=== PATIENT | female | born 1985 | race Caucasian/White ===

== ENCOUNTER 2018-12-17 20:10 | Emergency (ER) | payer OTHER ==
[2018-12-17] MEDS ORDERED: ONDANSETRON 4 MG/2 ML VIAL ONE (21:09)
[2018-12-17] MEDS ORDERED: MORPHINE 4 MG/ML SYR ONE (21:09)
[2018-12-17] MEDS ORDERED: NA CHLORIDE 0.9% 1,000 ML ONE (21:10)
[2018-12-17 21:38] LABS: Absolute Lymphocytes (CBC) 2.1 K/uL (0.7-4.9); Absolute Monocytes 0.9 K/uL (0.1-1.3); Absolute Neutrophil 8.4 K/uL (1.8-8.0); Basophils % 0.5 % (0-1.3); Eosinophils % 0.8 % (0-4.4); Lymphocytes % 18.3 % (15.3-44.8); MPV 9.1 fL (7.6-11.3); Monocytes % 7.7 % (3.3-12.3); RBC Red Blood Cell Count 4.53 M/uL (3.86-4.86)
[2018-12-17 21:52] LABS: ALT/SGPT 35 U/L (12-78); AST/SGOT 23 U/L (15-37); Albumin 3.9 g/dL (3.4-5.0); Alkaline Phosphatase 68 U/L (45-117); BUN Blood Urea Nitrogen 11 mg/dL (7-18); Bicarbonate 27 mmol/L (21-32); Bilirubin Direct < 0.1 mg/dL (0-0.2); Bilirubin Total 0.4 mg/dL (0.2-1.0); Glucose Level 95 mg/dL (74-106); Lipase 104 U/L (73-393); Potassium 3.9 mmol/L (3.5-5.1); Protein, Total 7.3 g/dL (6.4-8.2); Sodium Level 140 mmol/L (136-145)
[2018-12-17] MEDS ORDERED: LIDOCAINE VISCOUS 2% SOLN 15 ML UDC ONE (22:38)
[2018-12-17] MEDS ORDERED: DICYCLOMINE HCL 10 MG CAP ONE (22:38)
[2018-12-17] MEDS ORDERED: MAGNE/ALUM HYDROXD 30 ML UCUP ONE (22:38)
--- NOTE | 2018-12-17 23:20 | EDPHYS ---
Physician Documentation [facility] Name: Paulina Fonseca Age: 33 yrs Sex: Female : 1985 Arrival Date: 12/17/2018 Time: 20:14 Bed 13 Private MD: ED Physician Hari Cruz HPI: 12/17 20:55 This 33 yrs old Female presents to ER via Ambulatory with complaints of cp Abdominal Pain. 20:55 The patient presents with abdominal pain in the epigastric area, in the right upper cp quadrant. 20:55 Onset: The symptoms/episode began/occurred suddenly, today, at 16:00. The symptoms cp radiate to right back. Associated signs and symptoms: Pertinent positives: nausea, Pertinent negatives: chest pain, diarrhea, fever, vomiting. The symptoms are described as constant. Modifying factors: the symptoms are aggravated by pressure. Severity of pain: in the emergency department the pain is unchanged despite home interventions. Historical: - Allergies: 20:23 PENICILLINS; la1 - Home Meds: 20:23 Wellbutrin Oral [Active]; la1 - PMHx: 20:23 Hypertension; la1 - PSHx: 20:23 None; la1 - Immunization history:: Adult Immunizations up to date. - Social history:: Smoking status: Patient/guardian denies using tobacco. - Ebola Screening: : No symptoms or risks identified at this time. ROS: 21:00 Constitutional: Negative for body aches, chills, fever, poor PO intake. cp 21:00 Eyes: Negative for injury, pain, redness, and discharge. cp 21:00 ENT: Negative for drainage from ear(s), ear pain, sore throat, difficulty swallowing, difficulty handling secretions. 21:00 Cardiovascular: Negative for chest pain, edema, palpitations. 21:00 Respiratory: Negative for cough, shortness of breath, wheezing. 21:00 Abdomen/GI: Positive for abdominal pain, nausea, Negative for vomiting, diarrhea, constipation, anorexia, black/tarry stool, rectal bleeding. 21:00 Back: Positive for radiated pain, of the mid back area, Negative for injury or acute deformity, decreased range of motion. 21:00 : Negative for urinary symptoms. 21:00 Skin: Negative for cellulitis, rash. 21:00 Neuro: Negative for altered mental status, dizziness, headache, weakness. 21:00 All other systems are negative. Exam: 21:05 Constitutional: The patient appears in no acute distress, alert, awake, cp non-diaphoretic, non-toxic, well developed, well nourished, obese, uncomfortable. 21:05 Head/Face: Normocephalic, atraumatic. cp 21:05 Eyes: Periorbital structures: appear normal, Conjunctiva: normal, no exudate, no injection, Sclera: no appreciated abnormality, Lids and lashes: appear normal, bilaterally. 21:05 ENT: External ear(s): are unremarkable, Nose: is normal, Mouth: Lips: moist, Oral mucosa: pink and intact, moist, Posterior pharynx: is normal, airway is patent, no erythema, no exudate. 21:05 Neck: ROM/movement: is normal, is supple, without pain, no range of motions limitations, no nuchal rigidity. 21:05 Chest/axilla: Inspection: normal, Palpation: is normal, no crepitus, no tenderness. 21:05 Cardiovascular: Rate: tachycardic, Rhythm: regular. 21:05 Respiratory: the patient does not display signs of respiratory distress, Respirations: normal, no use of accessory muscles, no retractions, no splinting, no tachypnea, labored breathing, is not present, Breath sounds: are clear throughout, no decreased breath sounds, no stridor, no wheezing. 21:05 Abdomen/GI: Inspection: obese Bowel sounds: active, all quadrants, Palpation: soft, in all quadrants, moderate abdominal tenderness, in the epigastric area and right upper quadrant, rebound tenderness, is not appreciated, voluntary guarding, is elicited in the epigastric area and right upper quadrant. 21:05 Back: pain, that is moderate, of the mid back area, ROM is normal. 21:05 Skin: cellulitis, is not appreciated, no rash present. Vital Signs: 20:24 Pulse 119; Resp 16; Temp 97.3; Pulse Ox 98% on R/A; Weight 136.08 kg; Height 5 ft. 5 la1 in. (165.10 cm); Pain 8/10; 20:26 BP 140 / 97; la1 21:37 BP 95 / 83; Pulse 100; Resp 18; Pulse Ox 99% on R/A; ea 22:56 BP 107 / 78; Pulse 79; Resp 18; Pulse Ox 100% on R/A; ea 23:12 BP 107 / 78; Pulse 87; Resp 18; Pulse Ox 99% on R/A; ea 20:24 Body Mass Index 49.92 (136.08 kg, 165.10 cm) la1 MDM: 20:41 Patient medically screened. cp 22:40 Data reviewed: vital signs, nurses notes, lab test result(s), radiologic studies, cp ultrasound. Response to treatment: the patient's symptoms have markedly improved after treatment. 12/17 20:52 Order name: Basic Metabolic Panel; Complete Time: 22:20 12/17 20:52 Order name: CBC with Diff; Complete Time: 22:20 12/17 23:04 Interpretation: Normal except: WBC 11.5; NEUT A 8.4. 12/17 20:52 Order name: Creatinine for Radiology; Complete Time: 22:20 12/17 20:52 Order name: Hepatic Function; Complete Time: 22:20 12/17 23:04 Interpretation: Reviewed. 12/17 20:52 Order name: Lipase; Complete Time: 22:20 12/17 21:39 Order name: Urine Dipstick--Ancillary (enter results) [facility] 12/17 20:52 Order name: IV Saline Lock; Complete Time: 21:40 12/17 20:52 Order name: US Abdomen Limited: RUQ/epigastric area 12/17 21:39 Order name: Urine --Ancillary (enter results) [facility] 12/17 20:52 Order name: Labs collected and sent; Complete Time: 21:40 12/17 20:52 Order name: Urine Dipstick-Ancillary (obtain specimen); Complete Time: 21:39 12/17 20:52 Order name: Urine Test (obtain specimen); Complete Time: 21:39 12/17 22:23 Order name: PO challenge; Complete Time: 22:33 cp Administered Medications: 21:20 Drug: NS 0.9% 1000 ml Route: IV; Rate: 1 bolus; Site: right antecubital; ea 21:20 Drug: Zofran 4 mg Route: IVP; Site: right antecubital; ea 22:38 Follow up: Response: No adverse reaction; Pain is decreased ea 21:23 Drug: morphine 4 mg Route: IVP; Site: right antecubital; ea 22:00 Follow up: Response: No adverse reaction; Pain is decreased ea 22:38 Follow up: Response: No adverse reaction ea 22:33 Drug: Bentyl 20 mg Route: PO; ea 23:06 Follow up: Response: No adverse reaction ea 22:33 Drug: GI Cocktail without - (Maalox Suspension 30 ml, Lidocaine Liquid 2 % 15 ea ml) Route: PO; 23:06 Follow up: Response: No adverse reaction ea Disposition: 23:41 Co-signature as Attending Physician, Hari Cruz MD. pkl Disposition: 12/17/18 23:19 Discharged to Home. Impression: Cholelithiasis. - Condition is Stable. - Discharge Instructions: Biliary Colic, Adult, Cholelithiasis. - Prescriptions for Bentyl 20 mg Oral Tablet - take 2 tablet by ORAL route every 6 hours As needed; 40 tablet. Zofran 4 mg Oral Tablet - take 1 tablet by ORAL route every 12 hours As needed; 20 tablet. - Medication Reconciliation Form, Thank You Letter, Antibiotic Education, Prescription Opioid Use form. - Follow up: Javier Puente MD; When: 2 - 3 days; Reason: Recheck today's complaints. - Problem is new. - Symptoms have improved. Signatures: Dispatcher [employer] EDMS Hari Cruz MD MD pkl Abe Patterson RN RN la1 Jamey Camargo PA PA cp Antunez, Elena, RN RN ea Corrections: (The following items were deleted from the chart) 23:04 22:20 Normal except: WBC 11.5. cp cp 23:39 23:19 12/17/2018 23:19 Discharged to Home. Impression: Cholelithiasis. Condition is ea Stable. Forms are Medication Reconciliation Form, Thank You Letter, Antibiotic Education, Prescription Opioid Use. Follow up: Javier Puente; When: 2 - 3 days; Reason: Recheck today's complaints. Problem is new. Symptoms have improved. cp
--- NOTE | 2018-12-17 23:20 | ER ---
Nurse's Notes [facility] Name: Paulina Fonesca Age: 33 yrs Sex: Female : 1985 Arrival Date: 12/17/2018 Time: 20:14 Bed 13 Private MD: Diagnosis: Cholelithiasis Presentation: 12/17 20:23 Presenting complaint: Patient states: I was helping my parents move today around 1600 la1 and I began having upper abd pain, and the pain is getting much worse, pt reports nausea. Transition of care: patient was not received from another setting of care. Onset of symptoms was December 17, 2018. Risk Assessment: Do you want to hurt yourself or someone else? Patient reports no desire to harm self or others. Initial Sepsis Screen: Does the patient meet any 2 criteria? No. Patient's initial sepsis screen is negative. Does the patient have a suspected source of infection? No. Patient's initial sepsis screen is negative. Care prior to arrival: None. 20:23 Method Of Arrival: Ambulatory la1 20:23 Acuity: ROSE 3 la1 Historical: - Allergies: 20:23 PENICILLINS; la1 - Home Meds: 20:23 Wellbutrin Oral [Active]; la1 - PMHx: 20:23 Hypertension; la1 - PSHx: 20:23 None; la1 - Immunization history:: Adult Immunizations up to date. - Social history:: Smoking status: Patient/guardian denies using tobacco. - Ebola Screening: : No symptoms or risks identified at this time. Screenin:36 Abuse screen: Denies threats or abuse. Nutritional screening: No deficits noted. ea Tuberculosis screening: No symptoms or risk factors identified. Fall Risk None identified. Assessment: 21:00 General: Appears in no apparent distress. Behavior is calm, cooperative, appropriate ea for age. Pain: Complains of pain in right upper quadrant. Neuro: Level of Consciousness is awake, alert, obeys commands, Oriented to person, place, time, situation. Cardiovascular: Patient's skin is warm and dry. Respiratory: Airway is patent Respiratory effort is even, unlabored, Respiratory pattern is regular, symmetrical. GI: Bowel sounds present X 4 quads. Abd is soft and non tender X 4 quads. Derm: Skin is pink, warm \T\ dry. 22:37 Reassessment: Patient and/or family updated on plan of care and expected duration. Pain ea level reassessed. Patient is alert, oriented x 3, equal unlabored respirations, skin warm/dry/pink. 23:05 Reassessment: Patient and/or family updated on plan of care and expected duration. Pain ea level reassessed. Patient is alert, oriented x 3, equal unlabored respirations, skin warm/dry/pink. Patient states feeling better. 23:37 Reassessment: Patient and/or family updated on plan of care and expected duration. Pain ea level reassessed. Patient is alert, oriented x 3, equal unlabored respirations, skin warm/dry/pink. Discharge instructions given to patient, verbalized the understanding of instruction. Patient states feeling better. Vital Signs: 20:24 Pulse 119; Resp 16; Temp 97.3; Pulse Ox 98% on R/A; Weight 136.08 kg; Height 5 ft. 5 la1 in. (165.10 cm); Pain 8/10; 20:26 BP 140 / 97; la1 21:37 BP 95 / 83; Pulse 100; Resp 18; Pulse Ox 99% on R/A; ea 22:56 BP 107 / 78; Pulse 79; Resp 18; Pulse Ox 100% on R/A; ea 23:12 BP 107 / 78; Pulse 87; Resp 18; Pulse Ox 99% on R/A; ea 20:24 Body Mass Index 49.92 (136.08 kg, 165.10 cm) la1 ED Course: 20:14 Patient arrived in ED. am2 20:24 Triage completed. la1 20:24 Arm band placed on left wrist. la1 20:41 Jamey Camargo PA is PHCP. cp 20:41 Hari Cruz MD is Attending Physician. cp 20:53 Bushra Paul, RAVI is Primary Nurse. ea 21:15 Inserted saline lock: 20 gauge in right antecubital area, using aseptic technique. ea Blood collected. 21:36 Patient has correct armband on for positive identification. Placed in gown. Bed in low ea position. Call light in reach. 21:40 Ultrasound completed. Patient tolerated well. sg3 21:41 US Abdomen Limited: RUQ/epigastric area In Process Unspecified. EDMS 23:18 Javier Puente MD is Referral Physician. cp 23:37 No provider procedures requiring assistance completed. IV discontinued, intact, ea bleeding controlled, No redness/swelling at site. Pressure dressing applied. Administered Medications: 21:20 Drug: NS 0.9% 1000 ml Route: IV; Rate: 1 bolus; Site: right antecubital; ea 21:20 Drug: Zofran 4 mg Route: IVP; Site: right antecubital; ea 22:38 Follow up: Response: No adverse reaction; Pain is decreased ea 21:23 Drug: morphine 4 mg Route: IVP; Site: right antecubital; ea 22:00 Follow up: Response: No adverse reaction; Pain is decreased ea 22:38 Follow up: Response: No adverse reaction ea 22:33 Drug: Bentyl 20 mg Route: PO; ea 23:06 Follow up: Response: No adverse reaction ea 22:33 Drug: GI Cocktail without - (Maalox Suspension 30 ml, Lidocaine Liquid 2 % 15 ea ml) Route: PO; 23:06 Follow up: Response: No adverse reaction ea Outcome: 23:19 Discharge ordered by . cp 23:39 Patient left the ED. ea Signatures: Dispatcher [employer] EDMS Abe Patterson RN RN laJamey Sullivan PA PA cp Moreno, Amanda am2 Antunez, Elena, RN RN ea Godinez, Sarah sg3
[2018-12-17 23:43] LABS: Urine Blood TRACE (NEG); Urine Glucose NEGATIVE (NEG); Urine Protein NEGATIVE (NEG); Urine Specific Gravity 1.025 (1.005-1.030); Urine pH 5.5 (5.0-7.0)
--- NOTE | 2018-12-18 07:53 | RAD REPORT ---
EXAM DESCRIPTION: US - Abdomen Exam Limited - 12/17/2018 9:42 pm CLINICAL HISTORY: Abdominal pain. COMPARISON: None. FINDINGS: Multiple gallstones. Gallbladder wall borderline thickened. The biliary tree is normal caliber. IMPRESSION: Cholelithiasis with borderline gallbladder wall thickening. This may indicate cholecysti tis or be secondary to hypoalbuminemia
== END 2018-12-17 23:39 | disposition home or self-care (01) ==
LOC: ER 20:10
DX: K80.20 Calculus of gallbladder without cholecystitis without obstruction (principal); I10 Essential (primary) hypertension; Z88.0 Allergy status to penicillin
CPT/HCPCS: 36415; 76705; 80048; 80076; 81003; 81025; 83690; 85025; 96374; 96375; 99284; J2405; J7030

== ENCOUNTER 2018-12-29 07:16 | Day surgery (SDC) | payer OTHER ==
[2018-12-28 15:39] LABS: Albumin 4.1 g/dL (3.4-5.0); Bilirubin Direct 0.2 mg/dL (0-0.2); Bilirubin Total 0.5 mg/dL (0.2-1.0); Protein, Total 7.7 g/dL (6.4-8.2)
[2018-12-28 15:47] LABS: Absolute Lymphocytes (CBC) 1.7 K/uL (0.7-4.9); Absolute Monocytes 0.6 K/uL (0.1-1.3); Absolute Neutrophil 4.3 K/uL (1.8-8.0); Basophils % 0.5 % (0-1.3); Eosinophils % 0.3 % (0-4.4); Hematocrit 45.3 % (36.0-45.0); Lymphocytes % 25.9 % (15.3-44.8); MPV 10.5 fL (7.6-11.3); Monocytes % 9.4 % (3.3-12.3); RBC Red Blood Cell Count 4.73 M/uL (3.86-4.86)
[~2018-12-29 07:16] MED LIST: CEFOXITIN/SWI 2gm 2 GM/20 ML SYR IVP SCH
--- OUTSIDE RECORDS SUMMARY | 2018-12-29 07:19 | XMS REPORT ---
:1985 Author Organization e[employer] Care Team Providers Name Role Phone Javier Puente Provider Role Unavailable Allergies No Known Allergies Problems No Known Problems Medications No Known Medications Results No Known Results Summary Purpose eClinicalWorks Submission
--- OUTSIDE RECORDS SUMMARY | 2018-12-29 07:19 | XMS REPORT ---
:1985 Author Organization [employer] Care Team Providers Name Role Phone Javier Puente Provider Role Unavailable Allergies, Adverse Reactions, Alerts Substance Reaction Event Type PCN Info Not Available Drug Allergy Problems Problem Type Condition Code Onset Dates Condition Status Assessment Gallstones and inflammation of K80.00 Active gallbladder without obstruction Medications No Known Medications Results No Known Results Summary Purpose eClinicalAugust Submission
[2018-12-29] MEDS ORDERED: Ringers Lactate 1,000 ML IV ONE ×3 (07:45→09:11)
[2018-12-29] MEDS ORDERED: NA CIT/CITRIC AC 30 ML ORAL UDC ONE (07:56)
[2018-12-29] MEDS ORDERED: ONDANSETRON 4 MG/2 ML VIAL ONE ×3 (07:56→11:34)
[2018-12-29] MEDS ORDERED: BUPIVACAINE 0.25% PF 10 ML VIAL ONE (08:14)
[2018-12-29] MEDS ORDERED: BUPIVACA 0.25%/EPI 0.0005% MDV 50 ML VIAL ONE (08:14)
[2018-12-29] MEDS ORDERED: PROPOFOL 200 MG/20 ML VIAL IV ONE (08:18)
[2018-12-29] MEDS ORDERED: LIDOCAINE 1% MPF 5 ML VIAL ONE (08:19)
[2018-12-29] MEDS ORDERED: MIDAZOLAM HCL 2 MG/2 ML INJ ONE (08:19)
[2018-12-29] MEDS ORDERED: ROCURONIUM 50 MG/5 ML VIAL IV ONE (08:19)
[2018-12-29] MEDS ORDERED: FENTANYL CITR 100 MCG/2 ML ONE (08:19)
[2018-12-29] MEDS ORDERED: EPHEDRINE SULF 50 MG/10 ML SYR ONE (08:59)
[2018-12-29] MEDS ORDERED: DEXAMETHASONE 10 MG/ML VIAL ONE (08:59)
[2018-12-29] MEDS ORDERED: NS 0.9% VIAL 10 ML ONE (09:00)
--- NOTE | 2018-12-29 09:17 | P.OP ---
Eyedotter: JOSE ANTONIO VIRK Preoperative diagnosis: Cholecystitis Postoperative diagnosis: Cholecystitis Primary procedure: Laparoscopic Cholecystectomy Anesthesia: GETA + Local Estimated blood loss: <10cc Specimen: Gallbladder Findings: distended gallbladder, short cystic duct, artery Complications: None Transferred to: Recovery Room Condition: Good
[2018-12-29] MEDS ORDERED: KETOROLAC 30 MG/ML INJ ONE (09:24)
[2018-12-29] MEDS ORDERED: GLYCOPYRROLATE 0.2 MG/ML SYR ONE (09:25)
[2018-12-29] MEDS ORDERED: NEOSTIGMINE 1 MG/ML -10 ML VIAL ONE (09:28)
[2018-12-29] MEDS ORDERED: NA CHLORIDE 0.9% 1,000 ML ONE (09:46)
[2018-12-29] MEDS: HYDROMORPHONE HCL 1 MG/ML INJ ONE ×2 (09:47→09:52)
[2018-12-29] MEDS ORDERED: HYDROCODONE/APAP 7.5/325 MG TAB ONE (11:32)
--- NOTE | 2018-12-29 20:22 | OP ---
Date of Procedure: 12/29/2018 Surgeon: Javier Puente MD, Pond Sawyer: Miriam Nelson. Preoperative Diagnosis: Cholecystitis. Postoperative Diagnosis: Cholecystitis. Procedure Performed: Laparoscopic cholecystectomy. Anesthesia: General endotracheal plus local with 0.25% Marcaine with epinephrine. Estimated Blood Loss: Less than 10 cc. Specimen: Gallbladder. Findings: 1.Distended gallbladder. 2.Short cystic duct and cystic artery. Complications: None. Disposition: Transferred to recovery room in good condition. Procedure In Detail: Informed consent was obtained. The patient was brought to the operating room, prepped and draped in the usual sterile fashion. After adequate anesthesia was achieved, supraumbili south area was anesthetized with 0.25% Marcaine and sharply incised. A 5-mm trocar was introduced in t abdomen without evidence of complication, insufflation was obtained to 15 mmHg at this time. Ther e was no injury to vital structures upon entry into the abdomen. Additional trocar was chosen in the epigastrium. This was similarly anesthetized, sharply incised. A 5-mm trocar was introduced in the abdomen without evidence of complication. The umbilical trocar was then up-sized to a 12 mm under d irect visualization without evidence of complication. Additional trocar site was chosen in the right upper quadrant. This was similarly anesthetized and sharply incised. A 5-mm trocar was introduced in the abdomen without evidence of complication. The patient was then positioned in head up right-si de up position. Ratcheted grasper was used to grasp the patient's gallbladder and placing it toward the patient's right shoulder. Dissection continued down to remove adipose tissue off the anterior saldivar rface of the gallbladder, which had discoloration and distention at the time. The gallbladder was fo und to be quite floppy though, in addition to the distended nature of it obscuring the view somewhat, however, I was able to successfully dissect down to identify 2 structures, both identified as the cy stic duct and cystic artery. I encircled both of these and obtained a critical view of safety from [facility] anterior direction. I noted that they were somewhat short but easily identified and the liver was easily identified in the posterior window. The 2 structures were identified as the only 2 structure s entering the gallbladder and had no additional course and as such I doubly ligated the proximal ronak es of both the cystic duct and cystic artery, and singly on the distal side, used Endo Justin to liga te the 2 above structures. The gallbladder was then removed through the hepatic fossa without eviden ce of complication. There was minimal spillage of bile at the time, which was suctioned out using th e suction real estate sales supervisor device. The gallbladder was then placed in EndoCatch bag and removed through the umbilical trocar, sent off for pathologic examination. Reinsufflation was obtained at this time. T he area was copiously irrigated multiple times until completely clear. There were no hemostatic suleiman uvers required. The clips were all found to be in good anatomic position without any leakage of bile or any evidence of bleeding. I then positioned the patient in a neutral position, continuously suct ioned out the remainder of the irrigation, and removed the umbilical trocar, and closed the umbilical trocar site with a Padilla-Sanderson suture passer with a 0 Vicryl in interrupted fashion with good ap proximation of tissue. All remaining trocars were removed after completely de-sufflating the abdomen under direct visualization without evidence of complication. All skin incisions were then copiously irrigated and closed with a 4-0 Monocryl in a running fashion. Dermabond was placed over top. The patient tolerated the procedure without evidence of complication, transferred to PACU in good condition. All counts were correct at the end of the case. SARMAD/SUSANNE Voice ID: [id number] Report ID: [id number]
== END 2018-12-29 12:25 | disposition home or self-care (01) ==
LOC: OR 07:16
PROVIDERS: ATTEND Surgery
PROC: 0FT44ZZ Resection of Gallbladder, Percutaneous Endoscopic Approach (ICD-10-PCS; principal; 2018-12-29 08:30)
DX: K80.10 Calculus of gallbladder with chronic cholecystitis without obstruction (principal); I10 Essential (primary) hypertension; Z87.891 Personal history of nicotine dependence
CPT/HCPCS: 36415; 80076; 84703; 85025; 88304; J0694; J1100; J1170; J2250; J2405; J2704; J2710; J3010; J7030

== ENCOUNTER 2019-08-15 08:23 | Day surgery (SDC) | payer OTHER ==
--- OUTSIDE RECORDS SUMMARY | 2019-08-15 08:28 | XMS REPORT ---
[...] Medications Results No Known Results Summary Purpose eClinicalLevel Submission
--- OUTSIDE RECORDS SUMMARY | 2019-08-15 08:28 | XMS REPORT ---
:1985 Author Organization e[employer]Works Care Team Providers Name Role Phone Javier Puente Provider Role Unavailable Allergies, Adverse Reactions, Alerts Substance Reaction Event Type PCN Info Not Available Drug Allergy Problems Problem Type Condition Code Onset Dates Condition Status Assessment Calculus of gallbladder with chronic K80.10 Active cholecystitis without obstruction Medications No Known Medications Results No Known Results Summary Purpose [employer] Submission
--- OUTSIDE RECORDS SUMMARY | 2019-08-15 08:28 | XMS REPORT ---
:1985 Author Organization [facility] Address [address] [place] [address] [address]. [address] [place] [address] Care Team Providers Name Role Phone Unavailable Unavailable Unavailable Problems This patient has no known problems. Allergies, Adverse Reactions, Alerts This patient has no known allergies or adverse reactions. Medications This patient has no known medications.
[2019-08-15] MEDS ORDERED: Ringers Lactate 1,000 ML IV ONE (08:31)
[2019-08-15 08:55] LABS: Specific Gravity 1.025 (1.005-1.030)
[2019-08-15] MEDS ORDERED: MIDAZOLAM HCL 2 MG/2 ML INJ ONE (08:59)
[2019-08-15] MEDS ORDERED: LIDOCAINE 1% W/EPI 1:100,000 MDV 20 ML VIAL ONE (09:19)
[2019-08-15] MEDS ORDERED: FENTANYL CITR 100 MCG/2 ML ONE (09:32)
[2019-08-15] MEDS ORDERED: PROPOFOL 200 MG/20 ML VIAL IV ONE ×2 (09:32→09:59)
[2019-08-15] MEDS ORDERED: LIDOCAINE 2% MPF 5 ML VIAL ONE (09:32)
[2019-08-15] MEDS ORDERED: KETOROLAC 30 MG/ML INJ ONE (10:01)
[2019-08-15 11:00] VITALS: BP 130/89; TEMP 97.3; O2SAT 97
--- NOTE | 2019-08-15 20:21 | OP ---
Date of Procedure: 08/15/2019 Surgeon: Mayra Stark MD Studio Operations Manager: No assistants. Preoperative Diagnosis: Menorrhagia. Postoperative Diagnosis: Menorrhagia. Procedure Performed: Hysteroscopy, dilation and curettage. Anesthesia: MAC plus paracervical block. Specimens: Endometrial curettings. Complications: No complications. Drains: No drains. Condition: Patient's condition stable. Indications For Procedure: Patient is a 34-year-old with heavy menstrual periods, morbidly obese, ri sk factors for atypia or malignancy. Declined any medical treatment including a Mirena IUD for treat ment. However, endometrial evaluation initially considered to be necessary and so she was consented for hysteroscopy and endometrial evaluation and sampling. Description Of Procedure: After being consented, she was taken to the OR, placed in supine fashion o n the operating table. MAC was given when she was in a supine position, then placed in a dorsal lith otomy position. Pelvic exam performed. Uterus was very anteflexed. Anterior speculum was placed to expose the cervix. Anterior lip injected with 1% lidocaine mixed with 1:100,000 epinephrine. Two A llis clamps were placed. 5 cc each at 4 and 8 o'clock positions were given as well. SlimLine diagno stic hysteroscope was introduced after prep x3 with Betadine was done. Two Watson retractors had to be placed, 1 anteriorly and 1 posteriorly for me to get good exposure and the patient was in Trendelenb urg. Uterine cavity was entered and thick endometrium was noted. No intracavitary lesions. Both tu bal ostia were visualized. Scope removed. Endometrial curettings performed. Sample handed off for permanent pathology. Speculum was removed. Instruments removed. Instrument, needle, and sponge cou nts were correct at the end of the case. Patient tolerated the procedure well. She was recovered fr om anesthesia and taken to same-day recovery in stable condition. She will follow up with me in 1 we ek, possibly considering an ablation if there is no atypia or malignancy. CAROL/SUSANNE Voice ID: [id number] Report ID: [id number]
== END 2019-08-15 11:10 | disposition home or self-care (01) ==
LOC: OR 08:23
PROVIDERS: ATTEND Obstetrics & Gynecology
PROC: 0UJD8ZZ Inspection of Uterus and Cervix, Via Natural or Artificial Opening Endoscopic (ICD-10-PCS; 2019-08-15)
PROC: 0UDB7ZX Extraction of Endometrium, Via Natural or Artificial Opening, Diagnostic (ICD-10-PCS; principal; 2019-08-15 09:30)
DX: N92.1 Excessive and frequent menstruation with irregular cycle (principal); N94.6 Dysmenorrhea, unspecified; I10 Essential (primary) hypertension; E66.01 Morbid (severe) obesity due to excess calories; Z68.42 Body mass index [BMI] 45.0-49.9, adult; F33.1 Major depressive disorder, recurrent, moderate; Z88.0 Allergy status to penicillin
CPT/HCPCS: 81025; 88305; 58558; J2704 ×2; J2250; J3010; J7120

== ENCOUNTER 2019-10-29 06:31 | Emergency (ER) | payer OTHER ==
--- OUTSIDE RECORDS SUMMARY | 2019-10-29 06:33 | XMS REPORT ---
:1985 [facility] Address [address] [place] [address] Care Team Providers Name Role Phone Unavailable Unavailable Unavailable Payers Payer Name Policy Type Policy Number Effective Date Expiration Date Problems This patient has no known problems. Allergies, Adverse Reactions, Alerts Allergy Name Allergy Status Severity Reaction(s) Onset Inactive Treating Comments Type Date Date Clinician Penicillins TREVOR Active U 2019-08 00:00:0 0 Medications This patient has no known medications. Results Test Description Test Time Test Comments Text Results Atomic Results Result Comments SURG 2019-09-18 RUN DATE: 15:37:00 09/18/19 [facility] PAGE 1 RUN TIME: 1537 Specimen Inquiry RUN USER: INTERFACE PATIENT: LUKE BAL LOC: DAJA U #: [id number] AGE/SX: 34/F ROOM: RE09/05/19[facility] DR: Mayra Stark : 89 BED: DIS: STATUS: [facility] TLOC: SPEC #: [id number] RECD: 09/06/19 STATUS: JOSE RE # : [id number] RUT: 09/05/[address]: Mayra Stark MD ENTERED: 09/06/19 SP TYPE: SURG OTHR DR: Ashley Varner ORDERED: SURG PATH LVL 2, SURG PATH LVL / COPIES TO: Mayra Stark MD [address] [place] [address] [id number] Ashley Varner [address] [place] [address] HISTOLOGY: TISSUE ID BLK PCS BECKY LEV PROCEDURE DISPOSITION ____ ___ ___ __ _ FALLOPIAN TUBE, A 1 1 PELVIC ORGANS B 1 1 PELVIC ORGANS C 1 1 PROCEDURES: SURG PATH LVL 2 (09/06/19) SURG PATH LVL 4 (09/07/19) TISSUES: A. FALLOPIAN TUBE, NOS - BILATERAL FALLOPIAN TUBES B. PELVIC ORGANS, NOS - LEFT ANTERIOR CUL DE SAC ENDOMETRIOSIS NODULE C. PELVIC ORGANS, NOS - RIGHT ANTERIOR CUL DE SAC ENDOMETRIOSIS NODULE CLINICAL HISTORY EXCESSIVE/FREQ/IRREGULAR MENSTRUAL CYCLES -N92.1 CPT CODES CPT CODE(S): 63488 , 20999H6 , , , , , FINAL DIAGNOSIS A. Fallopian tubes, bilateral salpingectomy: COMPLETE CROSS SECTION OF FALLOPIAN TUBES BENIGN PARATUBAL CYSTS B. Soft tissue, left anterior cul-de-sac, excision: CONTINUED ON NEXT PAGE RUN DATE: 09/18/[address] [facility] PAGE 2 RUN TIME: 1537 Specimen Inquiry RUN USER: INTERFACE SPEC #: [facility]:[id number] PATIENT: LUKE BAL N #[id number] (Continued) FINAL DIAGNOSIS (Continued) ENDOMETRIOSIS NO EVIDENCE OF SIGNIFICANT ATYPIA OR MALIGNANCY C. Soft tissue, right anterior cul-de-sac. excision: ENDOMETRIOSIS NO EVIDENCE OF SIGNIFICANT ATYPIA OR MALIGNANCY GROSS DESCRIPTION A. Bilateral fallopian tubes. Received in formalin are two segments of fallopian tubes with fimbriated ends, the longer segment measures 5.5 x 1.2 x 0.7 cm. The second segment is 5.0 x 1.2 x 0.6 cm. The longer segment of fallopian tube has a patent lumen and is grossly unremarkable. The shorter segment of fallopian tube is slightly tortuous, has a patent lumen and is likewise grossly unremarkable. Section code: A1 Fimbriated end of longer segment of fallopian tube A2 Quality Assurance Specialist cross sections of longer segment of fallopian tube A3 Fimbriated end of shorter segment of fallopian tube A4 Quality Assurance Specialist cross sections of shorter segment of fallopian tube B. Left anterior cul-de-sac endometriosis nodule. Received in formalin is an irregular portion of yellow-knight soft tissue, 1.7 x 0.6 x 0.6 cm. The specimen is serially sectioned and consists of yellow fatty soft tissue with adjacent knight fibrous tissue. The entire specimen submitted as B. C. Right anterior cul-de-sac endometriosis nodule. Received in formalin is an irregular fragment of hurtado-knight soft tissue, 0.7 x 0.5 x 0.3 cm. The specimen is serially sectioned and consists of hurtado- knight fibrous tissue. The entire specimen submitted as C. ba/nr Grossing performed at [facility], [address] [place] [address], [address], [place] [address]. Traffic Assistant: Junaid Webb M.D. MICROSCOPIC DESCRIPTION A. Bilateral fallopian tubes. Sections show complete cross section of fallopian tubes with patent lumen. No significant inflammation is identified. Benign paratubal cysts identified. No evidence of atypia or malignancy. B. Left anterior cul-de-sac endometriosis nodule. Section shows fragments of soft tissue with mesothelial lining with focal areas of cauterized benign endometrial glands and stroma and hemosiderin consistent with clinical history of endometriosis. No evidence of atypia or malignancy. C. Right anterior cul-de-sac endometriosis nodule. Section shows fragments of CONTINUED ON NEXT PAGE RUN DATE: 09/18/[address] [facility] PAGE 3 RUN TIME: 1537 Specimen Inquiry RUN USER: INTERFACE SPEC #: [facility]:[id number] PATIENT: LUKE BAL N #[id number] (Continued) MICROSCOPIC DESCRIPTION (Continued) soft tissue with mesothelial lining with focal areas of cauterized benign endometrial glands and stroma and hemosiderin consistent with clinical history of endometriosis. No evidence of atypia or malignancy. /cm Signed SIGNATURE ON FILE NickJose M 09/18/19 1537 END OF REPORT UR HCG QUAL 2019-09-05 08:58:00 Test Item Value Reference Range Comments UR HCG QUAL (test code=HCGQLU) NEGATIVE NEGATIVE
--- OUTSIDE RECORDS SUMMARY | 2019-10-29 06:33 | XMS REPORT ---
[...] Medications Results No Known Results Summary Purpose [employer] Submission
--- OUTSIDE RECORDS SUMMARY | 2019-10-29 06:33 | XMS REPORT ---
[...] Medications Results No Known Results Summary Purpose [employer] Submission
[2019-10-29] MEDS ORDERED: ONDANSETRON 4 MG/2 ML VIAL ONE (06:56)
[2019-10-29] MEDS ORDERED: MORPHINE 4 MG/ML SYR ONE (07:02)
[2019-10-29 07:14] LABS: Absolute Lymphocytes (CBC) 1.7 K/uL (0.7-4.9); Basophils % 0.5 % (0-1.3); Hematocrit 42.3 % (36.0-45.0); Lymphocytes % 21.4 % (15.3-44.8); MPV 9.4 fL (7.6-11.3); RBC Red Blood Cell Count 4.36 M/uL (3.86-4.86)
[2019-10-29] MEDS ORDERED: NA CHLORIDE 0.9% 1,000 ML ONE (07:19)
[2019-10-29 07:31] LABS: ALT/SGPT 32 U/L (12-78); AST/SGOT 13 U/L (15-37); Albumin 3.3 g/dL (3.4-5.0); Alkaline Phosphatase 56 U/L (45-117); BUN Blood Urea Nitrogen 10 mg/dL (7-18); Bicarbonate 26 mmol/L (21-32); Bilirubin Direct 0.1 mg/dL (0-0.2); Bilirubin Total 0.3 mg/dL (0.2-1.0); Glucose Level 106 mg/dL (74-106); Lipase 114 U/L (73-393); Potassium 4.2 mmol/L (3.5-5.1); Protein, Total 6.3 g/dL (6.4-8.2); Sodium Level 142 mmol/L (136-145)
[2019-10-29 07:38] LABS: Urine Bacteria <20 /HPF (<20); Urine Culture Reflex Order NOT NEEDED; Urine RBC <5 /HPF (NONE SEEN)
[2019-10-29 07:38] LABS: Urine Blood TRACE (NEG); Urine Glucose NEGATIVE (NEG); Urine Protein NEGATIVE (NEG); Urine Specific Gravity 1.025 (1.005-1.030); Urine pH 5.5 (5.0-7.0)
--- NOTE | 2019-10-29 08:22 | RAD REPORT ---
EXAM DESCRIPTION: CT - Abdomen Pelvis W Contrast - 10/29/2019 7:54 am CLINICAL HISTORY: Abdominal pain COMPARISON: September 2019 TECHNIQUE: Computed axial tomography of the abdomen pelvis was obtained. 100 cc Isovue-300 was admin istered intravenously. Oral contrast was not requested which limits evaluation of bowel. All CT scans are performed using dose optimization technique as appropriate and may include automated exposure control or mA/KV adjustment according to patient size. FINDINGS: The liver, spleen, pancreas, adrenal and left kidney appear unremarkable. 1 millimeter non obstructing right renal calculus There is no evidence of diverticulitis. Normal appendix. Cholecystectomy 3 centimeter left ovarian cyst without significant free fluid IMPRESSION: 3 centimeter left ovarian cyst without significant free fluid
--- NOTE | 2019-10-29 08:35 | ER ---
Nurse's Notes [facility] Name: Paulina Fonseca Age: 34 yrs Sex: Female : 1985 Arrival Date: 10/29/2019 Time: 06:33 Bed 7 Private MD: Diagnosis: Endometriosis;Unspecified ovarian cysts;Abdominal and pelvic pain Presentation: 10/29 06:44 Presenting complaint: Patient states: she woke up this morning approx 0530 with bb abdominal pain like "labor pains" pain was 10/10 and she was very nauseous pt had ablation and tubal in August and she has hx of endometriosis. Transition of care: patient was not received from another setting of care. Onset of symptoms was October 29, 2019. Risk Assessment: Do you want to hurt yourself or someone else? Patient reports no desire to harm self or others. Initial Sepsis Screen: Does the patient meet any 2 criteria? No. Patient's initial sepsis screen is negative. Does the patient have a suspected source of infection? No. Patient's initial sepsis screen is negative. Care prior to arrival: None. 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 - Coronavirus screen:: The patient has NOT traveled to [place], [place], or [place] in the past 14 days. Proceed with normal triage process as indicated. - Social history:: Smoking status: Patient denies any tobacco usage or history of. - Ebola Screening: : No symptoms or risks identified at this time. Screenin:41 Abuse screen: Denies threats or abuse. Denies injuries from another. Nutritional jl7 screening: No deficits noted. Tuberculosis screening: No symptoms or risk factors identified. Fall Risk IV access (20 points). Total Quinteros Fall Scale indicates No Risk (0-24 pts). Assessment: 07:00 General: Appears in no apparent distress. uncomfortable, Behavior is cooperative. Pain: jl7 Complains of pain in suprapubic area Pain does not radiate. Pain currently is 8 out of 10 on a pain scale. Quality of pain is described as crampy, Is continuous. Neuro: Level of Consciousness is awake, alert, obeys commands, Oriented to person, place, time, situation. Cardiovascular: Reports lightheadedness, Patient's skin is warm and dry. Respiratory: Airway is patent Respiratory effort is even, unlabored, Respiratory pattern is regular, symmetrical. GI: Bowel sounds present X 4 quads. Abd is soft X 4 quads Abdomen is tender to palpation in suprapubic area. : No signs and/or symptoms were reported regarding the genitourinary system. EENT: No signs and/or symptoms were reported regarding the EENT system. Derm: Skin is pink, warm \\T\\ dry. Musculoskeletal: No signs and/or symptoms reported regarding the musculoskeletal system. 07:20 Reassessment: Pt reports decreased pain, rated 0/10. jl7 08:29 Reassessment: Patient appears in no apparent distress at this time. No changes from jl7 previously documented assessment. Patient and/or family updated on plan of care and expected duration. Pain level reassessed. Patient is alert, oriented x 3, equal unlabored respirations, skin warm/dry/pink. 08:38 Reassessment: Pt states "I just talked to Dr. Stark's office and let's just wait jl7 until they call back to see if they're going to come up here and see me." Pt will be discharged once her doctor's office calls back. Vital Signs: 06:48 BP 97 / 56; Pulse 91; Resp 16 S; Temp 97.8(O); Pulse Ox 99% on R/A; Weight 124.74 kg bb (R); Height 5 ft. 4 in. (162.56 cm) (R); Pain 8/10; 07:41 BP 106 / 68; Pulse 87; Resp 16 S; Pulse Ox 97% on R/A; Pain 0/10; jl7 08:49 BP 115 / 90; Pulse 81; Resp 15 S; Pulse Ox 97% on R/A; jl7 06:48 Body Mass Index 47.20 (124.74 kg, 162.56 cm) bb ED Course: 06:33 Patient arrived in ED. ds1 06:43 Mitch Norton PA is PHCP. jr8 06:43 Souleymane Mckeon MD is Attending Physician. jr8 06:47 Triage completed. bb 06:48 Arm band placed on Patient placed in an exam room, on a stretcher, on pulse oximetry. bb 07:00 Patient has correct armband on for positive identification. Placed in gown. Bed in low jl7 position. Call light in reach. Side rails up X2. Pulse ox on. NIBP on. 07:04 Inserted saline lock: 20 gauge in right antecubital area, using aseptic technique. oe Blood collected. 07:04 Initial lab(s) drawn, by ED staff, sent to lab. jl7 07:08 Emily Gliman RN is Primary Nurse. jl7 07:13 Radiology exam delayed due to lab results not completed at this time. (BUN/Creatinine). vm2 07:20 Urine collected: clean catch specimen, clear, Amount Voided: 100mL. jl7 08:33 Mayra Stark MD is Referral Physician. jr8 08:49 No provider procedures requiring assistance completed. IV discontinued, intact, jl7 bleeding controlled, No redness/swelling at site. Pressure dressing applied. Administered Medications: 07:05 Drug: Zofran 4 mg Route: IVP; Site: right antecubital; jd3 07:33 Follow up: Response: No adverse reaction jl7 07:06 Drug: morphine 4 mg Route: IVP; Site: right antecubital; jd3 07:20 Follow up: Response: No adverse reaction; Pain is decreased jl7 07:15 Drug: NS 0.9% 1000 ml Route: IV; Rate: 1000 ml; Site: right antecubital; jl7 08:50 Follow up: Response: No adverse reaction; IV Status: Completed infusion; IV Intake: jl7 550ml Intake: 08:50 IV: 550ml; Total: 550ml. jl7 Outcome: 08:33 Discharge ordered by . jr8 08:49 Discharged to home ambulatory. jl7 08:49 Condition: stable 08:49 Discharge instructions given to patient, family, Instructed on discharge instructions, follow up and referral plans. medication usage, Demonstrated understanding of instructions, follow-up care, medications, Prescriptions given X 2. 08:50 Patient left the ED. jl7 Signatures: Haleigh Bhakta ds1 Camryn Lancaster, RN RN bb Mitch Norton PA PA jr8 Anthony Gillette Jahala, RN RN jl7 Cintia Cuevas 2 Cuong Dinero RN RN jd3
--- NOTE | 2019-10-29 08:35 | EDPHYS ---
Physician Documentation [facility] Name: Paulina Fonseca Age: 34 yrs Sex: Female : 1985 Arrival Date: 10/29/2019 Time: 06:33 Bed 7 Private MD: ED Physician Souleymane Mckeon HPI: 10/29 08:03 This 34 yrs old Female presents to ER via Ambulatory with complaints of jr8 Abdominal Pain. 08:03 The patient presents with abdominal pain in the lower abdomen. Onset: The jr8 symptoms/episode began/occurred acutely, this morning. The symptoms do not radiate. Associated signs and symptoms: none. The symptoms are described as stabbing. Modifying factors: The symptoms are alleviated by nothing, the symptoms are aggravated by nothing. Severity of pain: At its worst the pain was moderate in the emergency department the pain is unchanged. The patient has not experienced similar symptoms in the past. The patient has not recently seen a physician. [employer]: 06:48 LMP 09/27/2019 bb Historical: - Allergies: 06:48 PENICILLINS; bb - Home Meds: 06:48 Wellbutrin Oral [Active]; bb - PMHx: 06:48 Hypertension; Endometrosis; Depression; Anxiety; bb - PSHx: 06:48 Tubal ligation; uterine ablation; bb - Immunization history:: Adult Immunizations up to date, Flu vaccine is not up to date. - Coronavirus screen:: The patient has NOT traveled to [place], [place], or [place] in the past 14 days. Proceed with normal triage process as indicated. - Social history:: Smoking status: Patient denies any tobacco usage or history of. - Ebola Screening: : No symptoms or risks identified at this time. ROS: 08:03 Eyes: Negative for injury, pain, redness, and discharge, ENT: Negative for injury, jr8 pain, and discharge, Neck: Negative for injury, pain, and swelling, Cardiovascular: Negative for chest pain, palpitations, and edema, Respiratory: Negative for shortness of breath, cough, wheezing, and pleuritic chest pain, Back: Negative for injury and pain, MS/Extremity: Negative for injury and deformity, Skin: Negative for injury, rash, and discoloration, Neuro: Negative for headache, weakness, numbness, tingling, and seizure. 08:03 Abdomen/GI: Positive for abdominal pain, Negative for nausea, vomiting, and diarrhea, abdominal distension, hematemesis, black/tarry stool, rectal pain, rectal bleeding, bowel incontinence, flatulence. Exam: 08:03 Eyes: Pupils equal round and reactive to light, extra-ocular motions intact. Lids and jr8 lashes normal. Conjunctiva and sclera are non-icteric and not injected. Cornea within normal limits. Periorbital areas with no swelling, redness, or edema. ENT: Nares patent. No nasal discharge, no septal abnormalities noted. Tympanic membranes are normal and external auditory canals are clear. Oropharynx with no redness, swelling, or masses, exudates, or evidence of obstruction, uvula midline. Mucous membranes moist. Neck: Trachea midline, no thyromegaly or masses palpated, and no cervical lymphadenopathy. Supple, full range of motion without nuchal rigidity, or vertebral point tenderness. No Meningismus. Cardiovascular: Regular rate and rhythm with a normal S1 and S2. No gallops, murmurs, or rubs. Normal PMI, no JVD. No pulse deficits. Respiratory: Lungs have equal breath sounds bilaterally, clear to auscultation and percussion. No rales, rhonchi or wheezes noted. No increased work of breathing, no retractions or nasal flaring. Back: No spinal tenderness. No costovertebral tenderness. Full range of motion. Skin: Warm, dry with normal turgor. Normal color with no rashes, no lesions, and no evidence of cellulitis. MS/ Extremity: Pulses equal, no cyanosis. Neurovascular intact. Full, normal range of motion. Neuro: Awake and alert, GCS 15, oriented to person, place, time, and situation. Cranial nerves II-XII grossly intact. Motor strength 5/5 in all extremities. Sensory grossly intact. Cerebellar exam normal. Normal gait. 08:03 Abdomen/GI: Inspection: obese scar(s), are noted in the suprapubic area, right upper quadrant and right lower quadrant, Bowel sounds: active, Palpation: soft, in all quadrants, mild abdominal tenderness, in the right lower quadrant, moderate abdominal tenderness, in the suprapubic area, mass, is not appreciated, rebound tenderness, is not appreciated, voluntary guarding, is not appreciated, involuntary guarding, is not appreciated, no appreciated organomegaly, Indicators: McBurney's point is not tender, Ferrera's sign is negative, Rovsing's sign is negative, Obturator sign is negative, Psoas sign is negative, Liver: tenderness, is not appreciated. Vital Signs: 06:48 BP 97 / 56; Pulse 91; Resp 16 S; Temp 97.8(O); Pulse Ox 99% on R/A; Weight 124.74 kg bb (R); Height 5 ft. 4 in. (162.56 cm) (R); Pain 8/10; 07:41 BP 106 / 68; Pulse 87; Resp 16 S; Pulse Ox 97% on R/A; Pain 0/10; jl7 08:49 BP 115 / 90; Pulse 81; Resp 15 S; Pulse Ox 97% on R/A; jl7 06:48 Body Mass Index 47.20 (124.74 kg, 162.56 cm) bb MDM: 06:43 Patient medically screened. jr8 08:03 Differential diagnosis: appendicitis, bowel obstruction, Dysmenorrhea, Endometriosis, jr8 non-specific abd pain, Ovarian Torsion, Pelvic Inflammatory Disease, Pyelonephritis, Tubal Ovarian Abcess, Ureterolithiasis, urinary tract infection, colitis. Data reviewed: vital signs, nurses notes, lab test result(s), radiologic studies, CT scan. Data interpreted: Pulse oximetry: on room air is 97 %. Interpretation: normal. Counseling: I had a detailed discussion with the patient and/or guardian regarding: the historical points, exam findings, and any diagnostic results supporting the discharge/admit diagnosis, lab results, radiology results. 08:31 ED course: Pain significantly better. Most likely endometriosis vs dysmenorrhea since jr8 she is close to starting menstrual cycle. Recommended f/u with [facility] again. Otherwise no acute lab or CT findings. Did discuss small left ovarian cyst as well but pain not localized to left side. 10/29 06:43 Order name: Basic Metabolic Panel 10/29 06:43 Order name: CBC with Diff 10/29 06:43 Order name: Creatinine for Radiology 10/29 06:43 Order name: Hepatic Function 10/29 06:43 Order name: Lipase 10/29 06:53 Order name: Urine Microscopic Only 10/29 07:17 Order name: CBC with Automated Diff; Complete Time: 07:58 EDMS 10/29 07:30 Order name: Urine Dipstick--Ancillary (enter results) 10/29 07:30 Order name: Urine --Ancillary (enter results) 10/29 07:30 Order name: Creatinine (Radiology Only); Complete Time: 07:58 EDMS 10/29 07:32 Order name: Basic Metabolic Panel; Complete Time: 07:58 EDMS 10/29 07:32 Order name: Liver (Hepatic) Function; Complete Time: 07:58 EDMS 10/29 07:32 Order name: Lipase; Complete Time: 07:58 EDMS 10/29 07:39 Order name: Urine Microscopic Only; Complete Time: 07:58 EDMS 10/29 06:43 Order name: IV Saline Lock; Complete Time: 07:02 [facility] 10/29 06:43 Order name: Labs collected and sent; Complete Time: 07:02 [facility] 10/29 06:53 Order name: Urine Dipstick-Ancillary (obtain specimen); Complete Time: 07:33 [facility] 10/29 07:03 Order name: CT Abd/Pelvis - IV Contrast Only 10/29 07:39 Order name: Urine --Ancillary; Complete Time: 07:58 EDMS 10/29 07:39 Order name: Urine Dipstick-Ancillary; Complete Time: 07:58 EDMS 10/29 08:23 Order name: CT; Complete Time: 08:23 EDMS Administered Medications: 07:05 Drug: Zofran 4 mg Route: IVP; Site: right antecubital; jd3 07:33 Follow up: Response: No adverse reaction jl7 07:06 Drug: morphine 4 mg Route: IVP; Site: right antecubital; jd3 07:20 Follow up: Response: No adverse reaction; Pain is decreased jl7 07:15 Drug: NS 0.9% 1000 ml Route: IV; Rate: 1000 ml; Site: right antecubital; jl7 08:50 Follow up: Response: No adverse reaction; IV Status: Completed infusion; IV Intake: jl7 550ml Disposition: 15:20 Co-signature as Attending Physician, Souleymane Mckeon MD I agree with the assessment and 4 plan of care. Disposition: 10/29/19 08:33 Discharged to Home. Impression: Endometriosis, Unspecified ovarian cysts, Abdominal and pelvic pain. - Condition is Stable. - Discharge Instructions: Abdominal Pain, Adult, Endometriosis, Ovarian Cyst. - Prescriptions for Ibuprofen 800 mg Oral Tablet - take 1 tablet by ORAL route every 12 hours As needed take with food; 20 tablet. Tylenol- Codeine #3 300-30 mg Oral Tablet - take 2 tablets by ORAL route every 6 hours As needed; 20 tablet. - Medication Reconciliation Form, Thank You Letter, Antibiotic Education, Prescription Opioid Use form. - Follow up: Mayra Stark MD; When: 5 - 6 days; Reason: Recheck today's complaints, Continuance of care, Re-evaluation by your physician. - Problem is new. - Symptoms have improved. Signatures: Dispatcher [employer] EDMS Camryn Lancaster RN RN Mitch Howard PA PA jr8 Emily Gilman RN RN jl7 Cuong Dinero RN RN jd3 Souleymane Mckeon MD MD tw4 Corrections: (The following items were deleted from the chart) 08:50 08:33 10/29/2019 08:33 Discharged to Home. Impression: Endometriosis; Unspecified jl7 ovarian cysts; Abdominal and pelvic pain. Condition is Stable. Forms are Medication Reconciliation Form, Thank You Letter, Antibiotic Education, Prescription Opioid Use. Follow up: Mayra Stark; When: 5 - 6 days; Reason: Recheck today's complaints, Continuance of care, Re-evaluation by your physician. Problem is new. Symptoms have improved. jr8
[2019-10-29 08:59] VITALS: TEMP 97.8
[2019-10-29 09:00] VITALS: O2SAT 97
[2019-10-29 09:02] VITALS: BP 115/90
== END 2019-10-29 08:50 | disposition home or self-care (01) ==
LOC: ER 06:31
DX: N80.9 Endometriosis, unspecified (principal); N83.209 Unspecified ovarian cyst, unspecified side; R10.2 Pelvic and perineal pain; I10 Essential (primary) hypertension; F32.9 Major depressive disorder, single episode, unspecified; Z88.0 Allergy status to penicillin
CPT/HCPCS: 96361; 85025; 80048; 36415; 81025; 80076; 83690; 74177; 96375; 96374; 99284; Q9967; J7030; J2405; 81003; 81015